=== PATIENT | male | born 1990 | race Caucasian/White ===

== ENCOUNTER 2018-01-04 17:24 | Emergency (ER) | payer OTHER ==
[2018-01-04 17:41] VITALS: BP 154/92; PULSE 97; TEMP 99.3; BMI 29.8
--- NOTE | 2018-01-04 17:52 | PDOC ---
History of Present Illness - General History Source: Patient Exam Limitations: No Limitations - History of Present Illness Initial Comments: 01/04/18 18:30 The patient is a 27 year old male, with a significant past medical history of bipolar disorder, who presents to the emergency department with, a wound infection on the fourth finger of the right hand beginning approx. 3 days ago. The patient reports mild pus draining from the ring finger. The patient reports he bites his nails. He denies any recent fevers, chills, headache or dizziness. He denies any recent nausea, vomit, diarrhea or constipation. He denies any recent chest pain or shortness of breath. Allergies: NKA Past surgical history: None reported. Social History: Nonsmoker. Social/ occasional EtOH use. <Floyd Alvarez - Last Filed: 01/04/18 18:30> <Danilo Zaragoza - Last Filed: 01/04/18 18:50> - General Chief Complaint: Wound Infection Stated Complaint: right ring finger wound Time Seen by Provider: 01/04/18 17:50 Past History <Floyd Alvaerz - Last Filed: 01/04/18 18:30> - Past Medical History COPD: No Psychiatric Problems: Yes - Suicide/Smoking/Psychosocial Hx Smoking History: Never smoked Have you smoked in the past 12 months: No Hx Alcohol Use: Yes (occasional) Drug/Substance Use Hx: No Substance Use Type: None <Danilo Zaragoza - Last Filed: 01/04/18 18:50> - Past Medical History Allergies/Adverse Reactions: Allergies Allergy/AdvReac Type Severity Reaction Status Date / Time No Known Allergies Allergy Verified 01/04/18 17:34 Home Medications: Ambulatory Orders Lisdexamfetamine Dimesylate [Vyvanse] 30 mg PO AM capsule 12/06/14 [place] Carbonate 150 mg PO 2 AM, 1 HS capsule 12/06/14 Cholecalciferol (Vitamin D3) [Vitamin D-3] 2,000 unit PO DAILY capsule Divalproex Sodium [Depakote] 250 mg PO BID 04/01/[address] [place] Carbonate 150 mg PO ASDIR capsule 04/01/16 Quetiapine Fumarate [Seroquel] 25 mg PO ASDIR tablet 04/01/16 Cephalexin Monohydrate [Keflex] 250 mg PO Q6H #20 capsule 01/04/18 Review of Systems - Review of Systems Comments:: 01/04/18 18:31 CONSTITUTIONAL: Absent: fever, no chills, no fatigue EYES: Absent: visual changes ENT: Absent: ear pain, no sore throat CARDIOVASCULAR: Absent: chest pain, no palpitations RESPIRATORY: Absent: cough, no SOB GI: Absent: abdominal pain, no nausea, no vomiting, no constipation, no diarrhea GENITOURINARY: Absent: dysuria, no frequency, no hematuria MUSKULOSKELETAL: Present: +Right fourth finger infection. Absent: back pain, no arthralgia, no myalgia SKIN: Absent: rash NEURO: Absent: headache <Floyd Alvarez - Last Filed: 01/04/18 18:30> *Physical Exam - Vital Signs Last Vital Signs Temp Pulse Resp BP Pulse Ox 99.3 F 97 H 18 154/92 98 01/04/18 17:25 01/04/18 17:25 01/04/18 17:25 01/04/18 17:25 01/04/18 17:25 <Floyd Alvarez - Last Filed: 01/04/18 18:30> - Vital Signs Last Vital Signs Temp Pulse Resp BP Pulse Ox 99.3 F 97 H 18 154/92 98 01/04/18 17:25 01/04/18 17:25 01/04/18 17:25 01/04/18 17:25 01/04/18 17:25 <Danilo Zaragoza - Last Filed: 01/04/18 18:50> *DC/Admit/Observation/Transfer - Attestations Scribe Attestion: 01/04/18 18:33 Documentation prepared by Floyd Alvarez, acting as medical administrative specialist for Danilo Zaragoza MD. <Floyd Alvarez - Last Filed: 01/04/18 18:30> - Discharge Dispostion Admit: No <Danilo Zaragoza - Last Filed: 01/04/18 18:50> Diagnosis at time of Disposition: Finger infection - Discharge Dispostion Disposition: HOME Condition at time of disposition: Improved - Prescriptions Prescriptions: Cephalexin Monohydrate [Keflex] 250 mg PO Q6H #20 capsule - Patient Instructions Additional Instructions: Warm soaks. Antibiotic as directed. Direct light pressure occasionally to keep drainage gentle open. Return to ER or see your primary physician if infection appears to be worsening. Otherwise finish antibiotics and avoid biting or other trauma to the nail.
[2018-01-04] MEDS ORDERED: CEPHALEXIN MONOHYDRATE 500 MG CAPSULE (UD) PO ONE (18:48)
[2018-01-04] MEDS ORDERED: CEPHALEXIN MONOHYDRATE 250 MG CAPSULE (FP) ONE (18:50)
== END 2018-01-04 18:57 | disposition home or self-care (01) ==
LOC: FER 17:24
DX: L08.9 Local infection of the skin and subcutaneous tissue, unspecified (principal); F31.9 Bipolar disorder, unspecified
CPT/HCPCS: 99281-25